=== PATIENT | female | born 1935 | race Two or more races ===

== ENCOUNTER 2025-09-26 15:04 | Emergency (ER) | payer OTHER, MEDICAID ==
[~2025-09-26] VITALS: Ht 162.6 cm; Wt 49.1 kg
[2025-09-26 15:19] VITALS: BP 99/57; RESP 18; TEMP 98.4; O2SAT 100
[2025-09-26 15:24] VITALS: PULSE 136
--- NOTE | 2025-09-26 15:29 | ECG ---
[facility] Test Date: 2025-09-26 Test Time: 15:24:52 Pat Name: ALLAN CORDOVA Department: Room: Gender: F Bi Analyst: GP : [id number] Requested By: CAIT MENDOZA Order Number: [id number] Reading MD: Richard Choudhury Measurements Intervals [place] Rate: 136 P: 0 CT: 0 QRS: -26 QRSD: 67 T: 72 QT: 291 QTc: 438 Interpretive Statements Atrial fibrillation Paired ventricular premature complexes Borderline left axis deviation Low voltage, extremity and precordial leads Nonspecific T abnormalities, lateral leads Electronically Signed On 10-01-2025 19:08:01 PST by Richard Choudhury Please click the below link to view image of tracing.
[2025-09-26] MEDS ORDERED: ONDANSETRON HCL 4 MG/2 ML VIAL IV ONE (18:30)
[2025-09-26] MEDS ORDERED: SODIUM CHLORIDE 0.9% 1,000 ML IV ONE (18:30)
[2025-09-26 18:57] LABS: Hematocrit 41.0 % (36.0-46.0); Hemoglobin 13.5 g/dL (12.2-16.2); Mean Corpuscular Hemoglobin 26.7 pg (28.0-32.0); Mean Corpuscular Volume 81.4 fL (80.0-100.0); Nucleated Red Blood Cells % 0.0 %
[2025-09-26 19:09] LABS: Alanine Aminotransferase 16 U/L (7-40); Albumin 4.5 g/dL (3.2-4.8); Alkaline Phosphatase 61 U/L (46-116); Anion Gap 11 (5-15); BUN/Creatinine Ratio 23.4 (10.0-20.0); Bilirubin, Total 1.0 mg/dL (0.2-1.0); Calcium 10.3 mg/dL (8.7-10.4); Carbon Dioxide 28 mmol/L (20-31); Chloride 101 mmol/L (98-107); Glucose 93 mg/dL (74-106); Lipase 26 U/L (12-53); Potassium 4.6 mmol/L (3.5-5.1); Sodium 140 mmol/L (136-145); Total Protein 7.2 g/dL (5.7-8.2)
[2025-09-26 19:11] LABS: Blood Urea Nitrogen 34 mg/dL (9-23)
[2025-09-26] MEDS ORDERED: PEGSOL11 PO (20:06)
--- NOTE | 2025-09-26 20:08 | ED.PDOC ---
History of Present Illness HPI Comments 89 y/o F presents with c/c of constipation and intermittent abdominal pain for x3 weeks. No relief or improvement with most [id number] or prescribed laxatives. Denies any further acute symptoms. Chief Complaint: Constipation Time Seen by MD: 18:20 Reviewed Notes: Nurses Notes, Medications, Allergies Allergies: Coded Allergies: NO KNOWN ALLERGIES (Unverified , 09/26/25) Home Meds Active Scripts Peg [id number] Bicarb-Sod Ch (Golytely) Pineappl Ivania, 1 BOTTLE PO O for 1 Day, #1 BOT Prov:CAIT MENDOZA MD 09/26/25 Information Source: Patient Mode of Arrival: Ambulatory Severity: Moderate Timing: Weeks Duration: Since onset Prehospital treatment: Treatment Past Medical History PAST MEDICAL HISTORY: Denies Surgical History: Denies all surgeries TELEGRAPH LINEMAN History: No Pertinent TELEGRAPH LINEMAN History All Other Systems: Reviewed and Negative (Comprehensive review of systems are negative unless stated in HPI) Physical Exam General Appearance: No Apparent Distress, Normal HEENT: Normal ENT Inspection, Pharynx Normal, TMs Normal Neck: Full Range of Motion, Non-Tender, Normal, Normal Inspection Respiratory: Chest Non-Tender, Lungs Clear, No Accessory Muscle Use, No Respiratory Distress, Normal Breath Sounds Cardiovascular: No Edema, No JVD, No Murmur, No Gallop, Normal Peripheral Pulses, Regular Rate/Rhythm Breast Exam: Deferred Gastrointestinal: No Organomegaly, Non Tender, No Pulsatile Mass, Normal Bowel Sounds, Soft Genitalia: Deferred Pelvic: Deferred Rectal: Deferred Extremities: No calf tenderness, Normal capillary refill, Normal inspection, Normal range of motion, Non-tender, No pedal edema Musculoskeletal : Apperance: Normal Neurologic: Alert, oxyacetylene cutter II-XII nml as Tested, No Motor Deficits, Normal Affect, Normal Mood, No Sensory Deficits Cerebellar Function: Normal Reflexes: Normal Skin: Dry, Normal Color, Warm Lymphatic: No Adenopathy Was a procedure done? Was a procedure done?: No Differential Dx Considerations may include: constipation, bowel obstruction, among others X-Ray, Labs, Meds, VS Vital Signs Date Time Temp Pulse Resp B/P (MAP) Pulse Ox O2 Delivery O2 Flow Rate FiO2 09/26/25 15:24 136 09/26/25 15:19 98.4 100 18 99/57 100 98.4 Lab Test 09/26/25 19:31 09/26/25 18:34 Range/Units Troponin I High Sensitivity 44 *H 47 *H </=34 ng/L White Blood Count 10.7 4.4-10.8 10^3/uL Red Blood Count 5.04 4.0-5.20 10^6/uL Hemoglobin 13.5 12.2-16.2 g/dL Hematocrit 41.0 36.0-46.0 % Mean Corpuscular Volume 81.4 80.0-100.0 fL Mean Corpuscular Hemoglobin 26.7 L 28.0-32.0 pg Mean Corpuscular Hemoglobin Concent 32.8 32.0-36.0 g/dL Red Cell Distribution Width 14.7 H 11.8-14.3 % Platelet Count 310 140-450 10^3/uL Mean Platelet Volume 8.4 6.9-10.8 fL Neutrophils (%) (Auto) 67.7 37.0-80.0 % Lymphocytes (%) (Auto) 23.5 10.0-50.0 % Monocytes (%) (Auto) 6.1 0.0-12.0 % Eosinophils (%) (Auto) 1.6 0.0-7.0 % Basophils (%) (Auto) 1.1 0.0-2.0 % Neutrophils # (Auto) 7.3 1.6-8.6 10 ^3/uL Lymphocytes # (Auto) 2.5 0.4-5.4 10 ^3/uL Monocytes # (Auto) 0.7 0-1.3 10 ^3/uL Eosinophils # (Auto) 0.2 0-0.8 10 ^3/uL Basophils # (Auto) 0.1 0-0.2 10 ^3/uL Nucleated Red Blood Cells 0.0 % Sodium Level 140 136-145 mmol/L Potassium Level 4.6 3.5-5.1 mmol/L Chloride Level 101 98-107 mmol/L Carbon Dioxide Level 28 20-31 mmol/L Anion Gap 11 5-15 Blood Urea Nitrogen 34 H 9-23 mg/dL Creatinine 1.45 H 0.550-1.02 mg/dL Glomerular Filtration Rate Calc 34 >90 mL/min BUN/Creatinine Ratio 23.4 H 10.0-20.0 Serum Glucose 93 74-106 mg/dL Calcium Level 10.3 8.7-10.4 mg/dL Total Bilirubin 1.0 0.2-1.0 mg/dL Aspartate Amino Transferase (AST) 25 13-40 U/L Alanine Aminotransferase (ALT) 16 7-40 U/L Alkaline Phosphatase 61 46-116 U/L Total Protein 7.2 5.7-8.2 g/dL Albumin 4.5 3.2-4.8 g/dL Lipase 26 12-53 U/L Time of 1ST Reevaluation: 18:50 Reevaluation 1ST: Unchanged Patient Education/Counseling: Diagnosis, Treatment, Need For Follow Up Family Education/Counseling: No Family Present SEPSIS Sepsis Screen Date sepsis recognized/suspect: Sep 26, 2025 Time Sepsis recognized/suspect: 1519 Recent Procedure: No On Antibiotic Therapy: No Respiratory Rate >20: No Heart Rate >90: Yes Temp<36 C (96.8 F) or >38.3 C: No SBP <90 or MAP <65 mmHG: No New Acute Mental Status Change: No Is the patient on CPAP, BIPAP,: No Physician Orders Urinalysis (09/26/25 18:25) Troponin-I Hs (09/26/25 21:25) Vital Signs Date Time Temp Pulse Resp B/P (MAP) Pulse Ox O2 Delivery O2 Flow Rate FiO2 09/26/25 15:24 136 09/26/25 15:19 98.4 100 18 99/57 100 98.4 Laboratory Tests Test 09/26/25 18:34 White Blood Count 10.7 10^3/uL (4.4-10.8) Departure 1 Departure Time of Disposition: 20:20 (Patient presenting with constipation. Patient did not want any further workup and at home to stay in the ER. We will discharge patient home with outpatient follow up) Impression: Primary Impression: Constipation Disposition: HOME / SELF CARE / HOMELESS Condition: Stable e-Prescriptions Peg [id number] Bicarb-Sod Ch (Golytely) Pineappl Ivania 1 BOTTLE PO O for 1 Day, #1 BOT Prov: CAIT MENDOZA MD 09/26/25 Discharged With: Self Critical Care Note Critical Care Time?: No Stability Stability form required: No Heart Score Heart Score: Heart Score Response (Comments) Value History N/A 0 EKG N/A 0 Age N/A 0 Risk Factors N/A 0 Troponin N/A 0 Total 0 I personally scribed for CAIT MENDOZA MD ([email or web address]) on 09/26/25 at 20:08. Electronically submitted by Cameron Herrera ([email or web address]). CAIT MENDOZA MD Sep 26, 2025 20:08
--- NOTE | 2025-09-26 20:25 | ED.PDOC ---
Departure 1 Departure Time of Disposition: 20:24 (Up on trying to discharge patient the patient reports she has chest pain and now has an elevated troponin EKGs nonischemic. We will admit patient for further workup) Impression: Primary Impression: Acute chest pain Additional Impressions: Constipation Elevated troponin Disposition: 09 ADMITTED INPATIENT Admit to: Tele Condition: Guarded Discharged With: Self CAIT MENDOZA MD Sep 26, 2025 20:25
[2025-09-26] MEDS ORDERED: ACETAMINOPHEN 325 MG TAB PO ONE (20:30)
--- NOTE | 2025-09-26 21:31 | DVH ---
INDICATION: cp TECHNIQUE: Frontal view of the chest. COMPARISON: CR CHEST 2 VIEW AND APICAL LORDOTIC on DOS: 09/02/24 FINDINGS/IMPRESSION: The lungs are clear. The cardiomediastinal silhouette is unremarkable. No pleural effusion or pneumothorax. No acute osseous abnormality.
== END 2025-09-26 20:24 | disposition left against medical advice (07) ==
LOC: ER 15:04
DX: K59.00 Constipation, unspecified (principal); Z79.899 Other long term (current) drug therapy
CPT/HCPCS: 36415; 71045; 80053; 83690; 84484; 85025; 93005; J2405